=== PATIENT | female | born 1995 | race Hispanic/Latino ===

== ENCOUNTER 2017-02-19 15:52 | Outpatient (CLI) | payer OTHER, SELFPAY ==
[~2017-02-19] VITALS: Ht 152.4 cm; Wt 54.0 kg
[2017-02-19 16:04] VITALS: BP 98/59
--- NOTE | 2017-02-20 14:15 | HPE ---
DATE OF ADMISSION: 02/19/2017 This patient and just arrived from [place] 2 days ago, and she came to labor and delivery because she had abdominal cramps. She speaks no Macedonian and Faroese only, and we were able to have limited conversation through a center manager. She is apparently a 21-year-old 1, para 0 with no medical issues. Her estimated date of confinement (EDC) is 03/26/2017 by early ultrasound. The packet of papers that she came with are multiple ultrasounds, including the early ultrasound. No other blood work is available. Apparently she said at the time that they went to their visits, they roman blood work, which was not provided to them. On examination she appears to be in no acute distress. Symphysis fundus height is 35, vertex. No loss of fluid or bleeding. Cervix is closed, posterior, and high. Four-quadrant bowel sounds are noted. Blood pressure is 98/59, respirations are 20, pulse 76, temperature 99.0. Urine is 1010, pH 5, trace of protein, negative for ketones. The rest the examination is unremarkable. She is normocephalic, atraumatic. Neck: Full range of motions. Pupils equal and reactive to light. Chest is clear bilaterally to bases. No wheezes or rhonchi. No costovertebral angle (CVA) tenderness. Vertex presenting. Four-quadrant bowel sounds are noted. No rashes, lesions, or pruritus. No arthralgia or myalgia. No complaints of cough, wheeze, shortness of breath, or dyspnea on exertion. She does not have any chest pain. She is not bleeding. She is neurologic complete. No incontinency, urgency, or frequency. No nausea, vomiting, diarrhea, or constipation. No diabetic issues. Gynecologic, past medical, past surgical, and family history noncontributory. She does not smoke, drink, or abuse drugs. She is to a soldier and is here less than 48 hours. We established the fact that she is going to have an intake at [facility]. We got all the credentials. We have given her the [facility] hotline, and she was discharged undelivered to followup with intake call tomorrow.
[2017-03-24] MEDS ORDERED: COLA100C5 PO (07:41)
== END 2017-02-19 17:54 | disposition home or self-care (01) ==
LOC: M LDO 15:52
PROVIDERS: ATTEND Obstetrics & Gynecology
DX: O26.893 Other specified pregnancy related conditions, third trimester (principal); Z3A.00 Weeks of gestation of pregnancy not specified

== ENCOUNTER 2017-03-08 18:11 | Emergency (ER) | payer OTHER, SELFPAY ==
[~2017-03-08] VITALS: Ht 149.9 cm; Wt 54.4 kg
[2017-03-08 18:12] VITALS: BP 110/77
[2017-03-08] MEDS ORDERED: Folic Acid (18:27)
[2017-03-08] MEDS ORDERED: AMOX500C PO (18:58)
[2017-03-08] MEDS ORDERED: AMOXICILLIN 500 MG CAP PO ONE (19:00)
== END 2017-03-08 19:11 | disposition home or self-care (01) ==
LOC: M ED 19:04
DX: O99.89 Other specified diseases and conditions complicating pregnancy, childbirth and the puerperium (principal); K13.0 Diseases of lips; Z3A.38 38 weeks gestation of pregnancy

== ENCOUNTER 2017-03-18 04:49 | Emergency (ER) | payer OTHER ==
[~2017-03-18] VITALS: Ht 149.9 cm; Wt 57.0 kg
[~2017-03-18 04:49] MED LIST: AMOX500C PO; Folic Acid
[2017-03-18] MEDS ORDERED: BENA25CA4 PO (07:11)
[2017-03-18] MEDS ORDERED: diphenhydrAMINE INJ 50MG/ML VIAL (J1200) IV ONE (07:15)
[2017-03-18 08:02] VITALS: BP 99/54
[2017-03-24] MEDS ORDERED: COLA100C5 PO (07:41)
== END 2017-03-18 08:03 | disposition home or self-care (01) ==
LOC: M ED 06:22
DX: O99.89 Other specified diseases and conditions complicating pregnancy, childbirth and the puerperium (principal); T36.0X5A Adverse effect of penicillins, initial encounter; L50.9 Urticaria, unspecified; R21 Rash and other nonspecific skin eruption; L29.9 Pruritus, unspecified; Z79.2 Long term (current) use of antibiotics; Z3A.39 39 weeks gestation of pregnancy
CPT/HCPCS: 96374; 99283; J1200

== ENCOUNTER 2017-03-22 06:58 | Inpatient (IN) | payer OTHER ==
[2017-03-22] VITALS (51 sets, daily range): BP systolic 89–154; BP diastolic 50–87
[~2017-03-22] VITALS: Ht 149.9 cm; Wt 56.0 kg
[~2017-03-22 06:58] MED LIST changes: +BENA25CA4 PO
[2017-03-22] MEDS ORDERED: LACTATED RINGER'S 1000 ML IV ONE (07:45)
[2017-03-22] MEDS: LR 1,000 ML IV SCH ×2 (08:00→16:00)
[2017-03-22] MEDS ORDERED: HYDRCRE EX (08:19)
[2017-03-22 08:25] LABS: MEAN CORPUSCULAR HGB CONC 30.8 g/dl (32.0-36.5); MEAN CORPUSCULAR VOLUME 71.4 fl (80.0-96.0); RED CELL DISTRIBUTION WIDTH 17.3 % (11.5-14.5); WHITE BLOOD COUNT 9.4 K/mm3 (4.0-10.0)
[2017-03-22] MEDS ORDERED: FENTANYL 2MCG/ML ROPIVACAINE 0.2% IN 0.9% NACL 200ML IVBAG As Ordered ONE (09:28)
[2017-03-22] MEDS ORDERED: REFRIGERATOR IV KEYS XX PRN (10:45)
[2017-03-22] MEDS ORDERED: ePHEDrine SULFATE 25 MG/5 ML(5MG/ML) SYRINGE IV PRN (10:45)
[2017-03-22] MEDS: FENTANYL/ROPIVACAINE/NACL BAG 200 ML EPIDURAL SCH (10:45)
[2017-03-22] MEDS ORDERED: EPIDURAL COMMENT XX SCH (10:45)
[2017-03-22] MEDS ORDERED: diphenhydrAMINE INJ 50MG/ML VIAL (J1200) IV PRN (10:45)
[2017-03-22] MEDS ORDERED: NALOXONE INJ 0.4 MG/1 ML VIAL (J2310) IV PRN (10:45)
[2017-03-22] MEDS ORDERED: ONDANSETRON 4MG/2ML VIAL (J2405) IV PRN (10:45)
[2017-03-22] MEDS ORDERED: EPIDURAL/PCA KEYS XX PRN (10:45)
[2017-03-22] MEDS ORDERED: LACTATED RINGER'S 1000 ML IV PRN (10:45)
[2017-03-22] MEDS ORDERED: OXYTOCIN 30 UNITS IN 0.9% NaCl 500ML IV BAG (J2590) As Ordered ONE (14:59)
--- NOTE | 2017-03-22 15:51 | HPE ---
DATE OF ADMISSION: 03/22/2017 HISTORY OF PRESENT ILLNESS: This lady is a 21-year-old 1, para 0 admitted in active labor at 39 and 3 weeks of gestation, susan every five minutes, moderate intensity. Category one strip. Group B streptococcus (GBS) negative, bulging membranes, 5 cm, occiput transverse -1 station, 100% effaced. She speaks either Senegalese or Kinyarwanda, no Kiswahili at all, and we are in the process of having an active healthcare customer service. Her risk factors are that she has a recent rash over the total body surface, itchy, not elevated or raised, and she has an appointment with dermatology. She also has an infected bite on her upper lip. She subsequently bit her lip and got secondarily infected, and she is late entry to care at 36+ weeks of gestation. LABORATORY DATA: Limited labs are O positive, HIV negative, hepatitis negative, RPR negative, rubella immune. Urine negative. Gonorrhea and chlamydia negative. 1-hour glucose is not available. GBS is negative. PHYSICAL EXAMINATION: On examination we have a distressed female. Symphysis fundus height is 39, vertex occiput transverse (OT) 5 cm, 100% effaced. She has as mentioned the lip issue and rash over generalized body. Blood pressure is 117/78, respirations are 16, pulse 75, temperature 99.0. Urine is 1.010, pH 5, +2 leukocyte esterase, trace protein, urobilinogen +1, and blood and hemoglobin 50, 50. The rest of the examination is unremarkable. She is normocephalic, atraumatic. Neck full range of motion. Pupils equal and reactive to light. Distal pulses symmetric. No evidence of deep venous thrombosis (DVT), pulmonary embolism (PE) or superficial phlebitis. Chest is clear bilaterally to bases. No wheezes or rhonchi. No costovertebral angle tenderness. Appropriate symphysis fundus height. Rash over the entire abdomen. Four quadrant bowel sounds are noted. She has some pruritus, rash as mentioned. No active lesions. No arthralgia or myalgia. No complaints of cough, wheezes, shortness of breath or dyspnea on exertion. No chest pain. Not bleeding. Neuro complete. No incontinence, urgency or frequency. No nausea, vomiting, diarrhea or constipation. We do not know about diabetic issues. PAST MEDICAL/SURGICAL HISTORY: She has no past medical or surgical history. FAMILY HISTORY: Unremarkable. SOCIAL HISTORY: She does not smoke or drink or abuse drugs. She is to a soldier who is speaks her language. ASSESSMENT: in summary we have a term gestation in active labor. Our plan of management is to hydrate, send off a urine for culture and sensitivity (C and S) that she has 50, 50 blood and urobilinogen, plus hemoglobin, +2 leukocyte esterase. Epidural as needed and labor is progressing. We spent to 25 minutes discussing on plan of management of both her and her and in her lower [place] language of [place]e.
[2017-03-22] MEDS ORDERED: OXYTOCIN DRIP 30 UNITS in APPROPRIATE DILUENT 1 EA IV SCH (17:30)
[2017-03-22] MEDS ORDERED: RHOGAM 300 MCG (1500 IU) INJ (J2790) IM SCH (22:45)
[2017-03-22] MEDS ORDERED: METHYLERGONOVINE MALEATE 0.2 MG TAB PO PRN (22:45)
[2017-03-22] MEDS ORDERED: IBUPROFEN 800 MG TAB PO PRN (22:45)
[2017-03-22] MEDS ORDERED: ANUSOL HC CREAM 30GM TOP PRN (22:45)
[2017-03-22] MEDS ORDERED: miSOPROStol 200 MCG TAB (S0191) PR ONE (22:45)
[2017-03-22] MEDS ORDERED: MEASLES,MUMPS,RUBELLA VACCINE INJ (MMR-II) (90707) SC SCH (22:45)
[2017-03-22] MEDS ORDERED: MOM 30ML SUSPENSION UDC PO PRN (22:45)
[2017-03-22] MEDS ORDERED: DIBUCAINE 1% OINTMENT 30GM TOP PRN (22:45)
[2017-03-22] MEDS ORDERED: DOCUSATE SODIUM 100 MG CAP PO PRN (22:45)
[2017-03-22 23:12] LABS: CORD GAS ABE A -7.5; CORD GAS HCO3 A 19.2 MEQ/L; CORD GAS O2 SAT A 27.2 %; CORD GAS PH A 7.268 UNITS; CORD GAS PO2 A 16.4 mmHg; CORD GAS SBC A 16.9 MEQ/L; CORD GAS TCO2 A 20.5 MEQ/L
[2017-03-22 23:15] LABS: CORD GAS ABE V -8.5; CORD GAS HCO3 V 16.5 MEQ/L; CORD GAS O2 SAT V 59.2 %; CORD GAS PCO2 V 33.7 mmHg; CORD GAS PH V 7.309 UNITS; CORD GAS PO2 V 25.5 mmHg; CORD GAS SBC V 16.9 MEQ/L; CORD GAS TCO2 V 17.6 MEQ/L
[2017-03-23] MEDS ORDERED: OXYTOCIN INJ 10 UNITS/ML VIAL (J2590) As Ordered ONE
[2017-03-23 00:38] VITALS: BP 121/71
[2017-03-23 01:00] VITALS: BP 121/71
[2017-03-23 05:37] VITALS: BP 107/62
[2017-03-23] MEDS: LR 1,000 ML IV SCH ×3 (08:00→16:00)
[2017-03-23 08:03] LABS: MEAN CORPUSCULAR HEMOGLOBIN 22.1 pg (27.0-33.0); MEAN CORPUSCULAR VOLUME 71.2 fl (80.0-96.0); RED CELL DISTRIBUTION WIDTH 17.7 % (11.5-14.5)
[2017-03-23 08:14] LABS: WHITE BLOOD COUNT 17.4 K/mm3 (4.0-10.0)
[2017-03-23] MEDS: PRENATAL VITAMINS CHEWABLE TABLET PO SCH (08:22)
[2017-03-23] MEDS: ACETAMINOPHEN 500 MG TAB PO PRN ×2 (08:25→17:35)
[2017-03-23] MEDS: FENTANYL/ROPIVACAINE/NACL BAG 200 ML EPIDURAL SCH (10:17)
--- NOTE | 2017-03-23 13:26 | DN ---
DATE: 03/22/2017 This is a 1, para 0, admitted with spontaneous rupture of membranes, meconium stained liquid. She had an epidural in place. At full dilatation with Dr. Stanley in attendance for the thick meconium, she had a spontaneous vaginal delivery of a live female infant weighing 3712 grams, 8 pounds 3 ounces, of nine and nine at 1 [address] Stanley in attendance for resuscitation. The placenta spontaneously delivered with pushing, three-vessel. The cord, membranes and tissues intact. We examined the vagina, the rectum, the lateral limon - all within normal limits. The uterus is atonic because of a large baby and prolonged pushing, requiring Cytotec 800 per rectum, plus IV 5 Pitocin running at 125 mL of Pitocin per hour, and aggressive fundal massage. She had approximately 700 mL of a gush of fluid, but after vigorous massage and the appropriate medications, the uterus contracted well under Pitocin. The patient and baby tolerating procedure well. The Ruff catheter was left in place because of significant vulvar edema and will be removed in 10 hours.
--- NOTE | 2017-03-23 14:18 | IPN ---
DATE OF SERVICE: 03/23/2017 day #1. This lady was a 1, para 1, admitted in active labor, delivered a live female infant, 8 pounds 3 ounces, 3712 grams. scores 9 and 9 at 1 and 5 minutes, respectfully. There was thick meconium at the time of delivery. Dr. Stanley in attendance for resuscitation. She had one elevated temperature. At the time, she also has questionable urinary tract infection (UTI) and was given prophylactic antibiotics. This morning, her blood pressure is 107/62, respirations 18, pulse 93, temperature is 99.2. We discussed phlebitis, cystitis, mastitis, endometritis, cellulitis, diet, excise, pain management, perineal, breast, and wound care through an analysis or research safety inspector, as she only speaks Croatian and Khmer. She does not want anything for control at the present time. Urine was sent off for culture and sensitivity (C and S), and we are awaiting the results. The uterus is 2 below. Lochia is moderate. Perineum is healing and intact, a bit swollen. The rest the examination is unremarkable. No evidence of deep venous thrombosis (DVT), pulmonary embolism (PE), or superficial phlebitis. Uterus 2 below. Lochia is moderate, as mentioned. Her admitting hemoglobin was 8.5, hematocrit 27.6, platelets 412. We are waiting for the 24-hour hemoglobin. She is presently asymptomatic in regard to her low hemoglobin. Her arterial pH of the baby was 7.26, base excess -7.5, venous pH 7.30, base excess -8.5. In summary, we have a term gestation, delivered a live female . Planning on breast-feeding and discharge with medications tomorrow.
[2017-03-23 18:00] VITALS: BP 122/69
[2017-03-24] MEDS: LR 1,000 ML IV SCH
[2017-03-24 06:16] VITALS: BP 114/65
[2017-03-24] MEDS ORDERED: PRENTAB9 PO (07:40)
[2017-03-24] MEDS ORDERED: IBUP-1114 PO (07:40)
[2017-03-24] MEDS ORDERED: ACET50TA PO (07:40)
[2017-03-24] MEDS ORDERED: COLA100C3 PO (07:41)
[2017-03-24] MEDS ORDERED: NUPE1OIN2 TOP (07:43)
[2017-03-24] MEDS: PRENATAL VITAMINS CHEWABLE TABLET PO SCH (09:03)
== END 2017-03-24 10:40 | disposition home or self-care (01) | DRG 775 ==
LOC: M LDO 06:58 → M LDI 07:34 → M OBS 03-23 00:29
PROVIDERS: ADMIT Obstetrics & Gynecology; ATTEND Obstetrics & Gynecology
PROC: 10E0XZZ Delivery of Products of Conception, External Approach (ICD-10-PCS; principal; 2017-03-22)
DX: O26.893 Other specified pregnancy related conditions, third trimester (principal); O99.03 Anemia complicating the puerperium; D64.9 Anemia, unspecified; R21 Rash and other nonspecific skin eruption; O77.0 Labor and delivery complicated by meconium in amniotic fluid; Z3A.39 39 weeks gestation of pregnancy; Z37.0 Single live birth; O75.89 Other specified complications of labor and delivery